=== PATIENT | male | born 1980 | race Caucasian/White ===

== ENCOUNTER 2016-05-28 22:49 | Inpatient (IN) ==
[2016-05-28] MEDS ORDERED: NS 1,000 ML IV ONE (22:59)
[2016-05-28] MEDS ORDERED: ZOFRAN IV ONE (22:59)
--- NOTE | 2016-05-28 23:14 | PROVIDER DOCUMENTATION ---
HPI-General Adult - General Chief Complaint: Near Syncope Stated Complaint: FLANK PAIN,DIZZINESS Time Seen by Provider: 05/28/16 22:58 Source: patient Allergies/Adverse Reactions: Patient Allergies Allergy/AdvReac Type Severity Reaction Status Date / Time mometasone furoate Allergy RUNNY NOSE Verified 05/28/16 22:58 [From Nasonex] Home Medications: Home Medication List Medication Instructions Recorded Confirmed Last Taken Type Amitriptyline [Elavil] 50 mg PO HS 05/28/16 05/28/16 05/28/16 History Baclofen 10 mg PO TID 05/28/16 05/28/16 05/28/16 History Insulin Glargine,Hum.rec.anlog 100 unit SQ 05/28/16 05/28/16 History [Lantus Solostar] LISINOpril [Prinivil] 10 mg PO DAILY 05/28/16 05/28/16 05/28/16 History Metformin [Glucophage] 1,000 mg PO BID CC 05/28/16 05/28/16 05/28/16 History - History of Present Illness -Gen Adult Nature of Presenting Problems: Pt. is 36 yom that presents with c/o N/V and right flank pain. Pt. reports when he bends over he gets dizzy and almost passes out. Pt. reports symptoms for one week. Pt. reports he is a diabetic and that he takes pills and insulin. Pt. denies any other symptoms. Location of Pain/Injury: reports: generalized. denies: head, face, mouth, neck , chest, upper extremity, hand(s), abdomen, back, pelvis, genitalia, lower extremity, feet, upper body, lower body Pain Radiation: reports: no radiation Quality of Pain: reports: aching. denies: burning, cramping, dull, fullness, indigestion, pressure, sharp, stabbing, tearing, throbbing, tightness Severity: reports: mild. denies: moderate, severe Onset/Duration: reports: gradual, 1 week ago Timing: reports: still present. denies: improving, gone now, resolved prior to arrival, intermittent, constant, changing over time, getting worse Context/Activities at Onset: reports: none. denies: recent emotional stress, recent physical stress, recent trauma history, possible bad food, cold exposure , out of country travel Modifying Factors: improves with: nothing Associated Symptoms: reports: fatigue, malaise, nausea, vomiting, weakness. denies: anxiety, arm pain, back/neck pain, chest pain, constipation, cough, diaphoresis, diarrhea, dizziness, EENT symptoms, fever/chills, genitourinary problems, headaches, heartburn, joint pain, loss of appetite, muscle aches, sinus congestion/drainage, rash, seizure, shortness of breath, sensory/motor loss, pain with inspiration, swelling/mass in abdomen, syncope, trouble walking Similar Symptoms Previously?: Yes Recently seen or treated by another doctor?: No Review of Systems - Adult - REVIEW OF SYSTEMS - ADULT Constitutional: reports: see HPIalma. denies: chills, fever Eyes: reports: see HPI. denies: discharge, blurred vision, double vision Ears, Nose, Mouth & Throat: reports: see HPI. denies: ear pain, hearing loss, sinus problem, nose pain, loose teeth, mouth/dental pain, throat pain, throat swelling Cardiovascular: reports: see HPI. denies: chest pain, irregular heart rate, orthopnea, syncope Respiratory: reports: see HPI. denies: chronic cough, cough, dyspnea on exertion, pleurisy, shortness of breath, wheezing Gastrointestinal: reports: see HPI, abdominal pain, nausea, vomiting. denies: hematemesis, diarrhea Genitourinary: reports: see HPI. denies: dysuria, discharge, flank pain, hematuria, hesitency, urgency Musculoskeletal: reports: see HPI, muscle aches. denies: bone pain, joint pain , joint swelling, neck pain Integumentary: reports: see HPI. denies: hives, hair loss, itching, rash, skin thickening Neurological: reports: see HPI. denies: ataxia, headache/migraines, numbness, paresthesia, seizure, tremors Psychiatric: reports: see HPI. denies: anxiety, depression, emotional problems , insomnia, panic attacks, suicidal thoughts Past History - Adult - PAST MEDICAL HISTORY-ADULT Review of Records: reports: Old Records Reviewed, Nursing Assessment Review, Medications Reviewed, Social history reviewed & non-contributory. Major Childhood Illnesses: reports: denies history Cardiovascular: reports: denies history Respiratory: reports: denies history Gastrointestinal: reports: denies history Obstetrical/Gynecological: reports: denies history Genitourinary: reports: denies history Musculoskeletal: reports: denies history Neurological: reports: denies history Psychiatric: reports: depression Endocrine/Immune: reports: Diabetes Other Conditions: reports: denies history - PRIOR SURGERIES/PROCEDURES Surgical/Procedure History: reports: reviewed, not pertinent - IMMUNIZATION STATUS Childhood Immunizations: See Nurse Assessment Flu Vaccine: See Nurse Assessment - FAMILY HISTORY Family History: reviewed, not pertinent - SOCIAL HISTORY Smoking: non-smoker Physical Exam-General - PHYSICAL EXAM-ADULT Initial Vital Signs Reviewed: Yes - CONSTITUTIONAL General Appearance: alert, mild distress, obese. negative: thin, anxious, lethargic, slow to respond, obtunded, combative - EYES Eyes: PERRL/EOMI, pink conjunctivae. negative: conjuctival exudate, scleral icterus, subconjunctival hemorrhage - HEAD, EARS, NOSE, MOUTH & THROAT HENMT: normocephalic/atraumatic, moist mucous membranes. negative: angioedema, frontal tenderness, maxillary tenderness - NECK Neck: non-tender, full range of motion, supple, normal inspection. negative: lymphadenopathy, trachial deviation, thyromegaly - RESPIRATORY Respiratory: lungs clear, normal breath sounds. negative: crackles, rales, rhonchi, stridor, wheezing - CARDIOVASCULAR Cardiovascular: regular rate, rhythm, no edema, no JVD, no murmur, tachycardia. negative: extra beats, friction rub, irregularly irregular - CHEST (BREASTS) Chest/Breast: deferred - GASTROINTESTINAL (ABDOMEN) Abdominal Exam: normal bowel sounds, non tender, soft. negative: distended, guarding, rigid, rebound, tenderness, hernia, mass - GENITOURINARY Male Genitalia: deferred Rectal Exam: deferred Hemoccult Exam: deferred - LYMPHATIC Lymphatic: no adenopathy. negative: axilla node tender, cervical node tenderness - MUSCULOSKELETAL Back Exam: normal inspection, no CVA tenderness, no vertebral tenderness. negative: ecchymosis, swelling, vertebral tenderness Extremity: normal range of motion, non-tender, normal gait, normal inspection. negative: deformity, erythema, inflammation, swelling, tenderness Peripheral Pulses: radial (R): 2+, radial (L): 2+ - SKIN Integumentary: normal color, normal turgor, warm/dry. negative: cyanosis, diaphoresis, ecchymosis, erythema, jaundice, mottled, pallor, petechiae, purpura , rash, swelling, tenderness - NEUROLOGIC Neurologic: grossly normal, no motor/sensory deficits. negative: aphasia, facial droop, focal weakness, motor weakness, sensory deficit - PSYCHIATRIC Psych/Mental Status: normal mood/affect, normal thought content, normal thought process, oriented x 3. negative: anxious, paranoid, tearful Progress - PLAN OF CARE/RESULTS Progress/Plan/Lab Results: Discussed results and plan of care with patient. Patient agrees with plan and verbalizes understanding. Vital Signs Temp Pulse Resp BP Pulse Ox 05/28/16 23:58 113 H 17 118/069 99 05/28/16 22:53 97 F L 125 H 18 111/083 99 mometasone furoate [From Nasonex] Allergy (Verified 05/28/16 22:58) RUNNY NOSE Amitriptyline [Elavil] 50 mg PO HS 05/28/16 Baclofen 10 mg PO TID 05/28/16 Insulin Glargine,Hum.rec.anlog [Lantus Solostar] 100 unit SQ 05/28/16 LISINOpril [Prinivil] 10 mg PO DAILY 05/28/16 Metformin [Glucophage] 1,000 mg PO BID CC 05/28/16 Laboratory 05/29/16 05/28/16 05/28/16 00:15 23:10 23:10 WBC 15.78 H RBC 5.24 Hgb 15.6 Hct 44.8 MCV 85.5 MCH 29.8 MCHC 34.8 RDW Std Deviation 12.9 Plt Count 279 MPV 11.3 H Immature Gran % (Auto) 2.0 H Neut % (Auto) 60.7 Lymph % (Auto) 30.0 Maury % (Auto) 4.8 Eos % (Auto) 1.5 Baso % (Auto) 1.0 H Immature Gran # (Auto) 0.32 H Neut # (Auto) 9.59 H Lymph # (Auto) 4.74 H Maury # (Auto) 0.75 H Eos # (Auto) 0.23 Baso # (Auto) 0.15 Specimen Type ARTERIAL Sample Site R RADIAL pH 7.43 pCO2 30 L pO2 97 HCO3 22.3 Base Excess -3.3 L Oxyhemoglobin 95.5 ABG O2 Sat (Calculated) 18.6 ABG O2 Saturation 98.7 ABG Carboxyhemoglobin 2.00 ABG Methemoglobin 1.3 Efren Test YES A-a O2 Difference 15.0 Total Hemoglobin 13.8 Lactate 3.70 H Blood Gas Modality ROOM AIR FiO2 % 21.0 Sodium Potassium Chloride Carbon Dioxide Anion Gap BUN Creatinine Estimated GFR/1.73 m2 BUN/Creatinine Ratio Glucose POC Glucose Calculated Osmolality Calcium Total Bilirubin AST ALT Alkaline Phosphatase Creatine Kinase Total Protein Albumin Globulin Albumin/Globulin Ratio Amylase 28 Lipase 38 Acetone Level 05/28/16 05/28/16 23:10 22:57 WBC RBC Hgb Hct MCV MCH MCHC RDW Std Deviation Plt Count MPV Immature Gran % (Auto) Neut % (Auto) Lymph % (Auto) Maury % (Auto) Eos % (Auto) Baso % (Auto) Immature Gran # (Auto) Neut # (Auto) Lymph # (Auto) Maury # (Auto) Eos # (Auto) Baso # (Auto) Specimen Type Sample Site pH pCO2 pO2 HCO3 Base Excess Oxyhemoglobin ABG O2 Sat (Calculated) ABG O2 Saturation ABG Carboxyhemoglobin ABG Methemoglobin Efren Test A-a O2 Difference Total Hemoglobin Lactate Blood Gas Modality FiO2 % Sodium 130 L Potassium 4.4 Chloride 91 L Carbon Dioxide 19 L Anion Gap 20 BUN 20 Creatinine 1.9 H Estimated GFR/1.73 m2 41 BUN/Creatinine Ratio 11 Glucose 283 H POC Glucose 295 H Calculated Osmolality 274 Calcium 10.7 H Total Bilirubin 0.50 AST 31 ALT 47 H Alkaline Phosphatase 107 Creatine Kinase 88 Total Protein 8.1 Albumin 4.5 Globulin 4.0 Albumin/Globulin Ratio 1.0 Amylase Lipase Acetone Level NEGATIVE Orders Category Date Time Status Cardiac Monitoring DIRECTED Care 05/28/16 23:37 Active Saline Loc NOW Care 05/28/16 22:59 Active ABG [RESP] Routine Lab 05/29/16 00:15 Completed ACETONE SERUM [CHEM] Stat Lab 05/28/16 23:10 Completed AMYLASE [CHEM] Stat Lab 05/28/16 23:10 Completed BLOOD CULTURE [BLDCUL] Stat Lab 05/29/16 00:34 Ordered CBC WITH ELECTRONIC DIFF [HEME] Stat Lab 05/28/16 23:10 Completed CK PROFILE [SP CHEM] Stat Lab 05/28/16 23:10 Completed COMPREHENSIVE METABOLIC PANEL [CHEM] Stat Lab 05/28/16 23:10 Completed LACTATE, PLASMA [CHEM] Stat Lab 05/29/16 00:50 Received LIPASE [CHEM] Stat Lab 05/28/16 23:[address] W/POSS RFLX CULT [URINALYSIS] Stat Lab 05/29/16 00:34 Uncollected 0.9% Sodium Chloride Inj [Ns] 1,000 ml Med 05/28/16 22:59 Discontinued IV 999 mls/hr 0.9% Sodium Chloride Inj [Ns] 1,000 ml Med 05/29/16 00:34 Active IV 999 mls/hr 0.9% Sodium Chloride Inj [Ns] 1,000 ml Med 05/29/16 00:34 Active IV 999 mls/hr CefTRIAXONE 1 GM/NS [Rocephin 1 gm/Ns] 50 ml Med 05/29/16 01:08 Active IV NOW Morphine Med 05/29/16 00:57 Discontinued 4 mg IV NOW ONE Ondansetron [Zofran] Med 05/28/16 22:59 Discontinued 4 mg IV NOW ONE Laboratory Tests 05/28/16 05/28/16 05/28/16 22:57 23:10 23:10 WBC 15.78 H RBC 5.24 Hgb 15.6 Hct 44.8 MCV 85.5 MCH 29.8 MCHC 34.8 RDW Std Deviation 12.9 Plt Count 279 MPV 11.3 H Immature Gran % (Auto) 2.0 H Neut % (Auto) 60.7 Lymph % (Auto) 30.0 Maury % (Auto) 4.8 Eos % (Auto) 1.5 Baso % (Auto) 1.0 H Immature Gran # (Auto) 0.32 H Neut # (Auto) 9.59 H Lymph # (Auto) 4.74 H Maury # (Auto) 0.75 H Eos # (Auto) 0.23 Baso # (Auto) 0.15 Specimen Type Sample Site pH pCO2 pO2 HCO3 Base Excess Oxyhemoglobin ABG O2 Sat (Calculated) ABG O2 Saturation ABG Carboxyhemoglobin ABG Methemoglobin Efren Test A-a O2 Difference Total Hemoglobin Lactate Blood Gas Modality FiO2 % Sodium 130 L Potassium 4.4 Chloride 91 L Carbon Dioxide 19 L Anion Gap 20 BUN 20 Creatinine 1.9 H Estimated GFR/1.73 m2 41 BUN/Creatinine Ratio 11 Glucose 283 H POC Glucose 295 H Calculated Osmolality 274 Calcium 10.7 H Total Bilirubin 0.50 AST 31 ALT 47 H Alkaline Phosphatase 107 Creatine Kinase 88 Total Protein 8.1 Albumin 4.5 Globulin 4.0 Albumin/Globulin Ratio 1.0 Amylase Lipase Acetone Level NEGATIVE 05/28/16 05/29/16 23:10 00:15 WBC RBC Hgb Hct MCV MCH MCHC RDW Std Deviation Plt Count MPV Immature Gran % (Auto) Neut % (Auto) Lymph % (Auto) Maury % (Auto) Eos % (Auto) Baso % (Auto) Immature Gran # (Auto) Neut # (Auto) Lymph # (Auto) Maury # (Auto) Eos # (Auto) Baso # (Auto) Specimen Type ARTERIAL Sample Site R RADIAL pH 7.43 pCO2 30 L pO2 97 HCO3 22.3 Base Excess -3.3 L Oxyhemoglobin 95.5 ABG O2 Sat (Calculated) 18.6 ABG O2 Saturation 98.7 ABG Carboxyhemoglobin 2.00 ABG Methemoglobin 1.3 Efren Test YES A-a O2 Difference 15.0 Total Hemoglobin 13.8 Lactate 3.70 H Blood Gas Modality ROOM AIR FiO2 % 21.0 Sodium Potassium Chloride Carbon Dioxide Anion Gap BUN Creatinine Estimated GFR/1.73 m2 BUN/Creatinine Ratio Glucose POC Glucose Calculated Osmolality Calcium Total Bilirubin AST ALT Alkaline Phosphatase Creatine Kinase Total Protein Albumin Globulin Albumin/Globulin Ratio Amylase 28 Lipase 38 Acetone Level - XRAY 1 XRAY Study: Chest XRAY Interpretation: Right hilar infiltrate (Cook) - CONSULTS/PCP/HOSPITALIST Notification #1 *Consult/PCP/Hospitalist*: Dr. Bobby Time Discussed: 01:13 Reason/Comments: Admission Consult Disposition: Admit #2 Consult: Dr. Morgan Time Discussed: 01:28 Reason/Comments: Admission Consult Disposition: Admit (Can send to [facility] because there are no beds at [place] ) Departure - Departure Time of Disposition Order: 01:13 DIAGNOSIS: Dehydration, Hyponatremia Leukocytosis Qualifiers: Leukocytosis type: unspecified Qualified Code(s): D72.829 - Elevated white blood cell count, unspecified Disposition: ADMITTED INPATIENT 09 Certified Medical Emergency: Emergent Condition: Stable Referrals: David Rojas [Primary Care Provider] - Attestation - Physician/ TIFFANIE Attestation Patient care was provided by Advanced Practice Provider:: Yes Advanced Practice Provider:: Denae Schwartz Advanced Practice Provider documentation review:: The Mid-level provider documentation, treatment plan and medical decision making was reviewed by the physician who agrees with all treatment and medical decision making by the MLP.
[2016-05-28 23:18] LABS: MANUAL DIFF NEEDED? NO
[2016-05-28 23:50] LABS: EOS# 0.23 X1000 (0.0-0.7); EOS% 1.5 % (0.0-10.0); HEMATOCRIT 44.8 % (42.0-52.0); HEMOGLOBIN 15.6 g/dL (14.0-18.0); IMM GRAN# 0.32 X1000 (0.0-0.04); LYMPH# 4.74 X1000 (1.2-3.4); MCH 29.8 PG (27-31); MCHC 34.8 g/dL (33-37); MCV 85.5 FL (81-99); MONO# 0.75 X1000 (0.11-0.59); MONO% 4.8 % (1.7-9.3); MPV 11.3 FL (7.4-10.4); NEUT% 60.7 % (42.2-75.2); PLT 279 X1000 (130-400); RBC 5.24 XMIL (4.7-6.1)
[2016-05-28 23:57] LABS: ACETONE SERUM NEGATIVE (NEGATIVE)
[2016-05-29 00:02] LABS: AGAP 20; ALBUMIN 4.5 g/dL (3.5-5.0); ALKALINE PHOSPHATASE 107 U/L (32-122); BUN 20 mg/dL (8-22); CALCIUM 10.7 mg/dL (8.8-10.2); CHLORIDE 91 mmol/L (98-107); CK PROFILE 88 U/L (24-204); COSMO 274; GOT 31 U/L (10-34); GPT 47 U/L (10-44); POTASSIUM 4.4 mmol/L (3.5-5.1); SODIUM 130 mmol/L (136-145); TCO2 19 mmol/L (25-35); TOTAL PROTEIN 8.1 g/dL (6.3-8.3)
[2016-05-29 00:04] LABS: AMYLASE 28 U/L (20-200); LIPASE 38 U/L (13-60)
[2016-05-29 00:31] LABS: BE -3.3 mmoll (-3.0-3.0); BLOOD TYPE ARTERIAL; DRAW SITE R RADIAL; METHB 1.3 % (0.0-1.5); O2(CT) 18.6 mL/dL (15.0-23.0); PCO2(98.6) 30 mmHg (35-45); PO2(98.6) 97 mmHg (60-100); SAMPLE BLOOD; SAO2 98.7 % (95.0-100.0); THB 13.8 g/dL (11.5-17.4); pH(98.6) 7.43 (7.35-7.45)
[2016-05-29] MEDS ORDERED: NS 1,000 ML IV ONE ×2 (00:34)
[2016-05-29 00:47] LABS: ALLEN TEST YES; MODALITY ROOM AIR
[2016-05-29] MEDS ORDERED: MORPHINE IV ONE (00:57)
[2016-05-29] MEDS ORDERED: ROCEPHIN 1 GM/NS 50 ML IV ONE (01:08)
[2016-05-29] MEDS ORDERED: ZOFRAN IV PRN (01:14)
[2016-05-29] MEDS ORDERED: TYLENOL PO PRN (01:14)
[2016-05-29 02:02] LABS: URINE SOURCE VOIDED
[2016-05-29] MEDS: NS 1,000 ML IV SCH ×5 (02:24→19:13)
[2016-05-29 02:33] LABS: BILIRUBIN URINE NEGATIVE (NEGATIVE); BLOOD URINE NEGATIVE (NEGATIVE); GLUCOSE URINE NEGATIVE (NEGATIVE); LEUKOCYTES URINE TRACE (NEGATIVE); NITRITE URINE NEGATIVE (NEGATIVE); PROTEIN URINE NEGATIVE (NEGATIVE); UROBILINOGEN URINE NORMAL
[2016-05-29 02:34] LABS: CLARITY CLEAR (CLEAR); COLOR YELLOW; URINE CRYSTAL CA OXALATE PRESENT /HPF; URINE CULTURE PL NEEDED? YES; URINE EPITHELIAL CELLS <10 /HPF (<10); URINE RBC <10 /HPF (<10); URINE WBC <10 /HPF (<10)
[2016-05-29] MEDS ORDERED: MORPHINE IV PRN (04:13)
[2016-05-29 06:18] LABS: MANUAL DIFF NEEDED? NO
[2016-05-29 06:40] LABS: BASO% 0.8 % (0.0-0.8); EOS# 0.46 X1000 (0.0-0.7); EOS% 3.8 % (0.0-10.0); HEMATOCRIT 35.7 % (42.0-52.0); HEMOGLOBIN 12.3 g/dL (14.0-18.0); IMM GRAN# 0.17 X1000 (0.0-0.04); IMM GRAN% 1.4 % (0.0-0.5); LYMPH# 5.03 X1000 (1.2-3.4); LYMPH% 41.1 % (20.5-51.1); MCHC 34.5 g/dL (33-37); MCV 87.1 FL (81-99); MONO# 0.69 X1000 (0.11-0.59); MONO% 5.6 % (1.7-9.3); MPV 10.6 FL (7.4-10.4); NEUT% 47.3 % (42.2-75.2); PLT 206 X1000 (130-400)
[2016-05-29] MEDS ORDERED: FLUZONE QUAD 2016-2017 SYRINGE IM ONE (06:40)
[2016-05-29] MEDS ORDERED: PNEUMOVAX 23 IM ONE (06:40)
[2016-05-29] MEDS: HUMALOG SUBQ SCH ×4 (06:51→20:20)
[2016-05-29 06:54] LABS: AGAP 13; BUN 16 mg/dL (8-22); CALCIUM 8.3 mg/dL (8.8-10.2); CHLORIDE 102 mmol/L (98-107); COSMO 272; POTASSIUM 4.1 mmol/L (3.5-5.1); SODIUM 135 mmol/L (136-145); TCO2 20 mmol/L (25-35)
[2016-05-29] MEDS ORDERED: DILAUDID IV PRN (07:06)
[2016-05-29] MEDS ORDERED: GLUCOPHAGE PO SCH (08:00)
[2016-05-29] MEDS: PRINIVIL PO SCH (08:11)
[2016-05-29] MEDS: PROTONIX IV SCH (08:29)
[2016-05-29] MEDS: SODIUM CHLORIDE 0.9% INJ SCH (08:29)
[2016-05-29] MEDS ORDERED: LANTUS SUBQ SCH (09:00)
--- NOTE | 2016-05-29 09:43 | Diag Imaging Result Document ---
PROCEDURE NAME: CHEST-2 VIEWS - 05/29/2016 TWO VIEWS OF THE CHEST: Normal chest.
--- NOTE | 2016-05-29 09:45 | Diag Imaging Result Document ---
PROCEDURE NAME: RENAL STONE SEARCH - 05/29/2016 CT UROGRAM WITHOUT CONTRAST: FINDINGS: There are a number of small granulomata in the lung bases. No evidence of pulmonary consolidation is present. There are no demonstrable gallstones. There is no evidence of nephrolithiasis or hydronephrosis. The small bowel and colon are not distended. The appendix is normal in caliber. There are no abnormal fluid collections. No evidence of ureterolithiasis is present. IMPRESSION: No evidence of stones or obstruction. The single punctate calcification in the pancreas is of doubtful significance.
--- NOTE | 2016-05-29 09:56 | HISTORY AND PHYSICAL ---
PRIMARY CARE PROVIDER: Dr. Tesfaye Rojas in [place]. CHIEF COMPLAINT: Near-syncopal episode. HISTORY OF PRESENT ILLNESS: Mr. Mijares is a 36-year-old male who presented to the ER at [place] last night at approximately 2300 with complaints of dizziness and a near-syncopal episode after bending over and leaning back up. The patient reports that he has a history of vertigo though has had some dizziness with this, as well, which is not normal for him. The patient reports that last Tuesday or Tuesday approximately 1 week ago that he became dizzy, fell out of bed, and got back up, and while attempting to walk down the stairs fell again, landing on his right side of his back. The patient reports that since this time has had constant right lower back pain that is sharp in nature that radiates down his right buttock into his right leg. The patient states, also, for the past week that he has had nausea and vomiting. He denies any hematemesis. He also reports that he has had some diarrhea for the past 3-4 days though denies any melena. The patient denies dysuria, urinary frequency, body aches or chills. He does report that due to his nausea and vomiting he has not eaten or drunk much in the past few days. The patient does complain of some generalized abdominal pain, as well. He describes this as sore in nature. The patient is alert and oriented to person, place, time, and situation. He denies any headache, chest pain, shortness of breath, or new or worsening numbness or tingling in his extremities. The patient does report that he has some decreased sensation in his bilateral feet secondary to diabetic neuropathy. Upon evaluation in the ER, the patient was found to have an elevated white blood cell count of 15 with an elevated lactate of 3.4. Chest x-ray was negative for any acute abnormality. The patient also did appear to be volume depleted with an acute kidney injury, as well. A urinalysis was obtained which did show trace white blood cells and 2+ bacteria though was otherwise normal. CT of the abdomen and pelvis without contrast showed the liver and spleen were both enlarged, though there are no other acute abnormalities noted at this time. At this time, we will admit the patient for further treatment and evaluation of his leukocytosis, UTI, acute kidney injury, and volume depletion. Due to not having any inpatient medical or surgical beds at [facility], we will transfer the patient to [facility] to be admitted. REVIEW OF SYSTEMS: A 14-point review of systems was conducted with the patient and all were negative except for pertinent positives mentioned in the above HPI. PAST MEDICAL HISTORY: 1. Vertigo. 2. Diabetes mellitus type 2. 3. Restless legs syndrome. 4. Diabetic neuropathy. 5. Depression. 6. Hypertension. PAST SURGICAL HISTORY: 1. Sinus surgery. 2. 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 SOCIAL HISTORY: The patient reports that he smokes 1/4-pack of cigarettes per day and has so for the past 15 years. He denies any alcohol or illicit drug use. The patient reports that he just recently started a job at [employer] 3 days ago. FAMILY HISTORY: Positive for diabetes mellitus, hypertension, and heart disease in his father. He reports that his grandmother had a history of breast cancer. He also reports that an aunt of his also has a history of breast cancer and that his grandfather from lung cancer. ALLERGIES: The patient reports allergies to Nasonex. HOME MEDICATIONS: 1. Lantus 65 units subcutaneous at bedtime. 2. Lantus 85 units subcutaneous daily. 3. Metformin 1000 mg p.o. b.i.d. 4. Baclofen 10 mg p.o. t.i.d. 5. Lisinopril 10 mg p.o. daily. 6. Elavil 50 mg p.o. at bedtime. DIAGNOSTIC DATA/LABORATORY RESULTS: White blood cell count 15.7, hemoglobin 15.6, hematocrit 44.8, platelet count is 279. Sodium 130, potassium 4.4, chloride 91, bicarb 19, BUN 20, creatinine 1.9, GFR is 41, glucose 283. Calcium 10.7. Liver function tests were within normal limits except for his AST is slightly elevated at 47. CK is 88. Amylase 28, lipase 38, plasma lactate 3.4. Serum acetone level was negative. Arterial blood gases are obtained on room air. pH was 7.43, pCO2 of 30, pO2 of 97, HCO3 22.3, base excess was negative 3.3, O2 saturation was 98.7. Urinalysis obtained via clean catch was positive for trace white blood cells and 2+ bacteria though was otherwise normal. These labs were collected at 2310 on 05/28/2016. Chest x-ray showed no acute abnormalities. CT renal stone search showed that the liver was enlarged, the gallbladder was unremarkable. There were no renal stones or ureteral stones noted, no hydronephrosis noted. The spleen is enlarged. There was punctate pancreatic calcification though no peripancreatic inflammatory changes noted. No diverticulitis identified or bowel obstruction. There were calcified granulomas in the lower lungs with small subpleural densities on the left. PENDING DIAGNOSTIC STUDIES AT THIS TIME: An EKG, urine culture, blood cultures, hepatic function tests, stool studies as well as a ultrasound gallbladder and a lumbar spine 2 view. PHYSICAL EXAMINATION: VITAL SIGNS: Temperature 97.9, heart rate 89, respirations 20, blood pressure 146/86, oxygen saturation is 100% on room air. GENERAL: Mr. Mijares is an obese 36-year-old male who is resting comfortably in the inpatient bed. He was awake, alert , and able to answer all questions appropriately. HEENT: Head is atraumatic, normocephalic. Pupils are equal, round, reactive to light, were 3 mm bilaterally and brisk. Subconjunctivae are pink. Oral mucosa is moist. Oropharynx is clear. NECK: Supple, trachea midline. CARDIOVASCULAR: The patient had a normal S1, S2, no murmurs, gallops or rubs appreciated with a regular rate and rhythm. PULMONARY: The patient has symmetrical chest expansion bilaterally. Lung sounds are clear to auscultation in bilateral full alvarez. ABDOMEN: Soft, does not appear to be distended, though the patient does have a protuberant abdomen noted. He did have generalized tenderness noted upon palpation. Bowel sounds were present in all 4 quadrants, were normoactive. EXTREMITIES: No cyanosis, clubbing, or edema noted. Pulse, motor, and sensory were intact in all extremities as well. Pedal pulses were 3+ bilaterally. The patient did note some soreness upon palpation of his right lower extremity. MUSCULOSKELETAL: The patient reports sharp right lower back pain that radiates down his right buttock to is right leg. This area from right CVA area to the right buttock and into his right leg was tender upon palpation. No discoloration noted to this area. INTEGUMENTARY: The patient's skin is pink, warm, dry, and intact. No lesions or sores noted. NEUROLOGICAL: The patient is alert and oriented to person, place, time, and situation. Cranial nerves 2-12 are grossly intact, though the patient does have some decreased sensation in his bilateral feet. This is not of new onset. He reports no new onset of numbness, tingling in extremities. ASSESSMENT AND PLAN: 1. Leukocytosis. This could be a combination of possibly related to a urinary tract infection and reactive. We will place the patient on Rocephin 1 g IV q.24 h. for his urinary tract infection. Urine culture as well as blood cultures have been placed and we will await those results. At this time, we have ordered a gallbladder ultrasound to rule out any other etiology for his leukocytosis as well as abdominal pain. 2. Urinary tract infection. Will continue with treatment as mentioned for #1 and continue to follow. 3. Acute kidney injury. This is likely secondary to nausea, vomiting, and volume depletion. Will continue with fluid restriction, normal saline at 100 mL/h., and will avoid nephrotoxic medications and renally dose all other medicines as needed. 4. Volume depletion. This is likely secondary to his nausea and vomiting. Will continue with treatment as mentioned above and continue to follow. 5. Nausea and vomiting. Will continue with Zofran 4 mg IV q. 4-6 h. as needed. 6. Diarrhea. We have placed orders for stool studies and are awaiting those results and will continue to follow. 7. Diabetes mellitus type 2. We will place the patient on a lispro low-dose sliding scale. Will do patterned fingerstick blood sugars. We have held the patient's metformin secondary to his acute kidney injury. 8. Hypertension. Will continue the patient's lisinopril 10 mg p.o. daily and continue to follow. 9. Low back pain. At this time, for further evaluation of this, we have ordered a lumbar spine to be performed to rule out any other injury. We have placed the patient on pain medicine, Dilaudid 1 mg IV q.3 h. p.r.n. as well as a muscle relaxer, Flexeril 5 mg p.o. q.8 h. and will continue to follow. The patient will be placed on a medical floor with telemetry. He will have vital signs q.6 h. DVT prophylaxis will be provided with SCDs, GI prophylaxis will be provided with Protonix 40 mg IV q.24 h. Further orders and recommendations pending hospital course, diagnostic studies, and physician evaluation. Dictated by KETURAH Guerra for Carson Morgan MD
[2016-05-29] MEDS: NORCO-10 PO PRN ×3 (10:09→19:12)
--- NOTE | 2016-05-29 10:15 | Diag Imaging Result Document ---
PROCEDURE NAME: US GB < RUQ (LIMITED) - 05/29/2016 RIGHT UPPER QUADRANT ULTRASOUND: FINDINGS: The liver is hyperechoic. The visualized portions of the aorta and inferior vena cava are normal in caliber, but mostly it is obscured, as is the pancreas. There is antegrade flow in the portal vein, and the common bile duct measures 4 mm. The right kidney is without evidence of hydronephrosis or mass. The gallbladder is apparently clear, and there is no definite sonographic Perdue sign. The patient is tender everywhere. No free fluid is demonstrated. IMPRESSION: Hepatic steatosis. No definite evidence of acute disease.
--- NOTE | 2016-05-29 10:29 | Diag Imaging Result Document ---
PROCEDURE NAME: LUMBAR SPINE 2-VIEWS - 05/29/2016 LUMBAR SPINE, AP AND LATERAL: FINDINGS: There is no evidence of acute fracture or subluxation. There is a transitional vertebra which is partially sacralized on the left at L5. There are some anterior osteophytes present at the T12-L1 and L1-2 levels. IMPRESSION: No evidence of acute bony disease.
[2016-05-29] MEDS: FLEXERIL PO SCH ×2 (12:52→20:20)
[2016-05-29] MEDS: ELAVIL PO SCH (20:20)
[2016-05-30] MEDS: NORCO-10 PO PRN ×5 (01:01→21:36)
[2016-05-30] MEDS: ROCEPHIN 1 GM/NS 50 ML IV SCH (01:03)
[2016-05-30] MEDS ORDERED: VANCOMYCIN IV PER PHARMACY MISC SCH (01:30)
[2016-05-30] MEDS: VANCOMYCIN 2,000 MG in NS 500 ML IV SCH ×2 (03:42→15:20)
[2016-05-30] MEDS: FLEXERIL PO SCH ×3 (04:58→21:37)
[2016-05-30 06:19] LABS: MANUAL DIFF NEEDED? NO
[2016-05-30 06:24] LABS: BASO% 1.2 % (0.0-0.8); EOS# 0.41 X1000 (0.0-0.7); EOS% 5.3 % (0.0-10.0); HEMATOCRIT 37.1 % (42.0-52.0); HEMOGLOBIN 12.6 g/dL (14.0-18.0); IMM GRAN# 0.12 X1000 (0.0-0.04); IMM GRAN% 1.5 % (0.0-0.5); LYMPH# 3.59 X1000 (1.2-3.4); MCH 30.1 PG (27-31); MCV 88.5 FL (81-99); MONO# 0.41 X1000 (0.11-0.59); MONO% 5.3 % (1.7-9.3); MPV 10.8 FL (7.4-10.4); NEUT% 40.7 % (42.2-75.2); PLT 170 X1000 (130-400); RBC 4.19 XMIL (4.7-6.1)
[2016-05-30 06:53] LABS: AGAP 12; BUN 9 mg/dL (8-22); CALCIUM 8.3 mg/dL (8.8-10.2); CHLORIDE 103 mmol/L (98-107); COSMO 277; POTASSIUM 4.3 mmol/L (3.5-5.1); SODIUM 138 mmol/L (136-145); TCO2 23 mmol/L (25-35)
[2016-05-30] MEDS: HUMALOG SUBQ SCH ×4 (06:55→22:14)
[2016-05-30 07:03] LABS: ALBUMIN 3.3 g/dL (3.5-5.0); ALKALINE PHOSPHATASE 86 U/L (32-122); DIRECT BILIRUBIN < 0.20 mg/dL (0.00-0.20); GOT 21 U/L (10-34); GPT 31 U/L (10-44); HEMOGLOBIN A1C 8.8 % (4.8-6.0); TOTAL BILIRUBIN 0.21 mg/dL (0.20-1.00); TOTAL PROTEIN 5.6 g/dL (6.3-8.3)
[2016-05-30] MEDS: PRINIVIL PO SCH (09:53)
[2016-05-30] MEDS: SODIUM CHLORIDE 0.9% INJ SCH (09:53)
[2016-05-30] MEDS: PROTONIX IV SCH (09:53)
[2016-05-30] MEDS ORDERED: ULTRAM PO PRN (12:05)
--- NOTE | 2016-05-30 15:21 | PROGRESS NOTE ---
DATE: 05/30/2016 SUBJECTIVE: Today Ms. Mijares refers to be doing a whole lot better. Does not have any more dizziness. Does complain of some lower back pain after he fell. OBJECTIVE: Vital signs: Blood pressure is 126/76, pulse of 70, respirations 20 , temperature is 97.8 degrees. General: Mr. Mijares is a 36-year-old morbidly obese, male. He is in bed, no distress. HEENT: Mucosa is pink and moist. Anicteric. Acyanotic. Neck: Supple. Chest: Clear. Cardiovascular: Regular rate and rhythm. No murmurs. No rubs. No gallops. Abdomen: Soft, nontender. Bowel sounds are present. Extremities: Pedal edema. 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 There is no focal neurological deficit. Back: There is mild tenderness to the lower spine from the fall. LABORATORY DATA: WBC is down to 7.80, hemoglobin is 12.6, platelet count of 170 ,000. Chemistry: Sodium is 138, potassium 4.3, chloride is 103, bicarb is 23, A1c is 8.8, creatinine is down to 0.6 from 1.9. ASSESSMENT: 1. Dizziness, likely due to volume depletion (orthostatic hypotension). This seems to be improved after adequate hydration. 2. Acute kidney injury due to volume depletion. This has improved. 3. Nausea and vomiting, improved. 4. Diabetes mellitus, on high doses of insulin. A1c is 8.8. According to the patient this is actually the best he has had for a very long time. 5. Lower back pain with unremarkable x-rays. Patient does not have any neurological deficits. We will continue just pain management. 6. Morbid obesity. 7. Gram-positive cocci. Blood culture positive 1 out of 2. I think this is probably contamination. However, patient has been given vancomycin. We plan to continue this until we have the ID and sensitivity. PLAN: I think the patient is doing a whole lot better. Once we have the ID and sensitivity we might be able to discharge the patient home tomorrow. [facility]
[2016-05-30] MEDS: ELAVIL PO SCH (21:37)
[2016-05-31] MEDS: ROCEPHIN 1 GM/NS 50 ML IV SCH (00:18)
[2016-05-31] MEDS: VANCOMYCIN 2,000 MG in NS 500 ML IV SCH (01:40)
[2016-05-31] MEDS: NORCO-10 PO PRN ×3 (01:40→10:43)
[2016-05-31] MEDS: FLEXERIL PO SCH (05:14)
--- NOTE | 2016-05-31 06:03 | EKG Report ---
Test Performed on : 05/29/2016 08:17:49 AM Test Reason : Near-Syncopal Episode, Dizziness Blood Pressure : / mmHG Vent. Rate : 084 BPM Atrial Rate : 084 BPM P-R Int : 162 ms QRS Dur : 086 ms QT Int : 398 ms P-R-T Axes : 037 -13 002 degrees QTc Int : 470 ms Normal sinus rhythm. Inferior infarct (cited on or before 17-FEB-2016) Abnormal ECG When compared with ECG of 17-FEB-2016 13:36, No significant change was found Confirmed by Carlos Huang MD ([id number]) on 06/01/2016 9:17:00 PM
[2016-05-31] MEDS: HUMALOG SUBQ SCH ×2 (06:52→10:43)
[2016-05-31 07:36] VITALS: BP 136/88
[2016-05-31] MEDS: PRINIVIL PO SCH (08:46)
[2016-05-31] MEDS: PROTONIX IV SCH (08:47)
[2016-05-31] MEDS: SODIUM CHLORIDE 0.9% INJ SCH (08:47)
[2016-05-31] MEDS ORDERED: FLEXERIL PO SCH (13:00)
--- NOTE | 2016-06-01 11:44 | DISCHARGE SUMMARY ---
ADMISSION DATE: 05/29/2016 DISCHARGE DATE: 05/31/2016 PERTINENT PROCEDURES: Renal CT showed no evidence of stone or obstruction. There is a single punctate calcification in the pancreas of doubtful significance. Abdominal ultrasound showed hepatic steatosis and no evidence of acute disease. Lumbar spine x-ray showed no evidence of acute bony disease. CONSULTATIONS: None. DISCHARGE DIAGNOSES: 1. Dizziness secondary to fluid volume depletion. 2. Orthostatic hypertension, improved after adequate hydration. 3. Acute kidney injury secondary to volume depletion, improved. 4. Nausea and vomiting, improved. 5. Diabetes mellitus with an A1c of 8.8. 6. Lower back pain with unremarkable x-rays with no neurological deficits. 7. Morbid obesity. Patient educated on diet and exercise. 8. GPC + blood culture 1/2 secondary to contamination. It did grow out a Coag negative Staphylococcus. HOSPITAL COURSE: Briefly, Mr. Mijares is 36-year-old male who presented to the ED at [facility] with complaints of dizziness, near-syncopal episode after bending over and leaning back up. The patient reported that he has a history of vertigo so he has had some dizziness with this as well which was not normal for him. The patient reported that last Tuesday or Tuesday, approximately 1 week ago, he became dizzy, fell out of bed and got back up. While attempting to walk down the stairs, he fell again landing on the right side of his back. The patient reported, since that time, he has had constant lower back pain that was sharp in nature that radiated down his right buttock into his right leg. The patient stated for the last week he had nausea and vomiting. He denied any hematemesis. He reported diarrhea for the past 3-4 days. He denied any melena. He also reported not eating or drinking as much due to his nausea and vomiting and complained of generalized abdominal pain. He describes it as sore in nature. In the ED, the patient was found have an elevated white count of 15 with a lactate of 3.4. Chest x-ray was negative for any acute abnormality. The patient did appear to be volume depleted with an acute kidney injury. Urinalysis that was obtained did show trace white blood cells, 2 + bacterial; otherwise, normal. CT of the abdomen and pelvis showed that the liver and spleen were both enlarged. There were no other acute abnormalities. He also underwent a normal spine CT. Due to not having any in-patient medical or surgical beds at [facility], the patient was transferred to [facility] to be admitted. He was started on aggressive IV fluid rehydration. He was also started on IV antibiotics for a possible UTI. The patient did have 1 blood culture grow back gram- positive cocci. It was felt that this was a contamination. The patient, after getting IV fluids, had not had anymore dizziness. He just still complained of lower back pain. Again, a lumbar spine x-ray did not show any evidence of any acute bony disease. The patient was kept until the culture came back. It was a Coag-negative Staphylococcus, still felt to be a contaminant. His urine culture had no growth. There was no enteric pathogen in the stool culture. No WBCs as well as Clostridium difficile negative. The patient, again, reported to doing better after IV fluids. His acute kidney injury resolved. His white count went back to normal. The patient is appropriate for discharge home today. VITAL SIGNS AT TIME OF DISCHARGE: Temperature is 98 degrees, heart rate 89, respirations 16, blood pressure 136/88, O2 is 97% on room air. DISCHARGE DIET: Healthy heart diet. DISCHARGE MEDICINES: 1. Baclofen 10 mg p.o. t.i.d. 2. Elavil 50 mg p.o. at bedtime. 3. Glucophage 1000 mg p.o. b.i.d. 4. Lantus 85 units subcutaneously daily. 5. Lantus 65 units subcutaneously at bedtime. 6. Prinivil 10 mg p.o. daily. 7. Evergreen 10 one each p.o. q.4 hours p.r.n. 8. Flexeril 5 mg p.o. q 8 hours. FOLLOWUP: The patient is being discharged home. He will need to follow up with his primary care physician, Tesfaye Rojas in 7-10 days. The patient can return to the ED for any worsening symptoms. DISCHARGE TIME: 30 minutes. Dictated by KETURAH Nunez for Ollie Vu MD MTDD
== END 2016-05-31 13:59 | disposition home or self-care (01) | DRG 683 ==
LOC: P.ED 22:49 → 4N 05-29 01:19
PROVIDERS: ATTEND Internal Medicine
DX: N17.9 Acute kidney failure, unspecified (principal); N39.0 Urinary tract infection, site not specified; E11.42 Type 2 diabetes mellitus with diabetic polyneuropathy; Z68.43 Body mass index [BMI] 50.0-59.9, adult; E86.9 Volume depletion, unspecified; G25.81 Restless legs syndrome; F32.9 Major depressive disorder, single episode, unspecified; I10 Essential (primary) hypertension; F17.210 Nicotine dependence, cigarettes, uncomplicated; M54.5 Low back pain; E66.01 Morbid (severe) obesity due to excess calories; I95.1 Orthostatic hypotension; Z83.3 Family history of diabetes mellitus; Z82.49 Family history of ischemic heart disease and other diseases of the circulatory system; Z80.3 Family history of malignant neoplasm of breast; Z80.1 Family history of malignant neoplasm of trachea, bronchus and lung; Z79.4 Long term (current) use of insulin; Z79.84 Long term (current) use of oral hypoglycemic drugs; Z79.899 Other long term (current) drug therapy
CPT/HCPCS: 71020; 72100; 74176; 76705; 80048; 80053; 80076; 81001; 82009; 82150; 82550; 82805; 82948; 83036; 83605; 83690; 85025; 87040; 87045; 87046; 87077; 87088; 87324; 89055; 93005; 93010; 96361; 96365; 96375; C9113; J0696; J1170; J1815; J2270; J2405; J3370; J7030; J7040; S0164

== ENCOUNTER 2016-06-01 17:25 | Emergency (ER) ==
--- NOTE | 2016-06-01 17:41 | PROVIDER DOCUMENTATION ---
HPI-General Adult - General Source: patient - History of Present Illness -Gen Adult Nature of Presenting Problems: Reports to er for recheck. Pt reports he was admitted on Tuesday discharged Yesterday from [facility] with diagnosis of Pneumonia,renal insufficiency,uti gave rocephin,did imaging and was given fluids. Reports imaging was negative. Pt reports he fell last week so they did imaging for him. Reports however his right side still hurts and now he is having back pain,abd pain and right leg numbness and pain. Location of Pain/Injury: reports: generalized Quality of Pain: reports: aching Severity: reports: moderate Onset/Duration: reports: 24 hours ago Timing: reports: still present Similar Symptoms Previously?: Yes Recently seen or treated by another doctor?: Yes <Allie Case - Last Filed: 06/01/16 17:44> <Breanna Garcia - Last Filed: 06/01/16 19:42> - General Chief Complaint: Return/Recheck Stated Complaint: NUMBESS,ABD PAIN,BODY PAINS Time Seen by Provider: 06/01/16 17:41 Allergies/Adverse Reactions: Patient Allergies Allergy/AdvReac Type Severity Reaction Status Date / Time mometasone furoate Allergy RUNNY NOSE Verified 06/01/16 17:33 [From Nasonex] Home Medications: Home Medication List Medication Instructions Recorded Confirmed Last Taken Type Amitriptyline [Elavil] 50 mg PO HS 05/28/16 06/01/16 06/01/16 History Baclofen 10 mg PO TID 05/28/16 06/01/16 06/01/16 History Insulin Glargine,Hum.rec.anlog 85 unit SQ DAILY 05/28/16 06/01/16 06/01/16 History [Lantus Solostar] LISINOpril [Prinivil] 10 mg PO DAILY 05/28/16 06/01/16 06/01/16 History Metformin [Glucophage] 1,000 mg PO BID CC 05/28/16 06/01/16 06/01/16 History Insulin Glargine,Hum.rec.anlog 65 unit SQ QHS 05/29/16 06/01/16 06/01/16 History [Lantus Solostar] Cyclobenzaprine [Flexeril] 5 mg PO Q8HR #12 tablet 05/31/16 06/01/16 06/01/16 Rx Hydrocodone/APAP 10 mg/325 mg 1 each PO Q4H PRN PRN #10 tablet 05/31/1606/01/16 Rx [[place]-10] Hydrocodone/APAP 7.5 mg/325 mg 1 each PO Q6H PRN PRN #7 tablet 06/01/16 Unknown Rx [[place]-7.5] Promethazine [Phenergan] 25 mg PO Q6H PRN PRN #20 tablet 06/01/16 Unknown Rx Review of Systems - Adult - REVIEW OF SYSTEMS - ADULT Constitutional: reports: chills. denies: fever, fatique, weight gain, weight loss Eyes: reports: no symptoms reported Ears, Nose, Mouth & Throat: denies: ear pain, sinus problem, throat pain Cardiovascular: reports: no symptoms reported Respiratory: denies: cough, shortness of breath, wheezing Gastrointestinal: reports: see HPI, abdominal pain. denies: diarrhea, nausea, vomiting Genitourinary: reports: no symptoms reported Musculoskeletal: reports: see HPI, back pain, muscle aches. denies: frequent leg cramps, muscle weakness, neck pain Integumentary: reports: no symptoms reported Neurological: reports: numbness. denies: loss of balance, seizure, slurred speech Psychiatric: reports: no symptoms reported Endocrine: reports: no symptoms reported Hematologic/Lymphatic: reports: no symptoms reported Allergic/Immunologic: reports: no symptoms reported All Other Systems: Reviewed and Negative <Allie Case - Last Filed: 06/01/16 17:44> Past History - Adult - PAST MEDICAL HISTORY-ADULT Review of Records: reports: Nursing Assessment Review Major Childhood Illnesses: reports: denies history Cardiovascular: reports: HTN Respiratory: reports: asthma, COPD Endocrine/Immune: reports: Diabetes - IMMUNIZATION STATUS Childhood Immunizations: See Nurse Assessment Flu Vaccine: See Nurse Assessment - SOCIAL HISTORY Smoking: cigarettes, less than 1 pack/day Provider spent 3-5 mins advising pt. on dangers of tobacco.: Discussed manners to quit use, and f/u contacts for add'l counseling. Substance Use: alcohol <Allie Case - Last Filed: 06/01/16 17:44> - PAST MEDICAL HISTORY-ADULT Major Childhood Illnesses: reports: denies history Cardiovascular: reports: denies history Respiratory: reports: denies history Gastrointestinal: reports: denies history Obstetrical/Gynecological: reports: denies history Genitourinary: reports: denies history Musculoskeletal: reports: denies history Neurological: reports: denies history Psychiatric: reports: depression Endocrine/Immune: reports: Diabetes Other Conditions: reports: denies history - PRIOR SURGERIES/PROCEDURES Surgical/Procedure History: reports: reviewed, not pertinent - IMMUNIZATION STATUS Childhood Immunizations: See Nurse Assessment Flu Vaccine: See Nurse Assessment - FAMILY HISTORY Family History: reviewed, not pertinent <Breanna Garcia - Last Filed: 06/01/16 19:42> Physical Exam-General - PHYSICAL EXAM-ADULT Initial Vital Signs Reviewed: Yes - CONSTITUTIONAL General Appearance: appears well, alert, mild distress, obese - EYES Eyes: PERRL/EOMI, pink conjunctivae - HEAD, EARS, NOSE, MOUTH & THROAT HENMT: normocephalic/atraumatic, moist mucous membranes - NECK Neck: non-tender, full range of motion, supple - RESPIRATORY Respiratory: chest non-tender, lungs clear, normal breath sounds, increased rate - CARDIOVASCULAR Cardiovascular: regular rate, rhythm - GASTROINTESTINAL (ABDOMEN) Abdominal Exam: normal bowel sounds, soft, tenderness (generalized without localization), other (protuberant abdomen, unable to palpate liver or spleen) - MUSCULOSKELETAL Back Exam: normal inspection, muscle spasm (left lumbar PSM) Extremity: no calf tenderness, normal capillary refill Peripheral Pulses: dorsalis-pedis (R): 2+, dorsalis-pedis (L): 2+ - SKIN Integumentary: normal color, normal turgor, warm/dry - NEUROLOGIC Neurologic: grossly normal, no motor/sensory deficits - PSYCHIATRIC Psych/Mental Status: normal thought content, normal thought process <Breanna Garcia - Last Filed: 06/01/16 19:42> Progress - PLAN OF CARE/RESULTS Progress/Plan/Lab Results: Vital Signs - 24 hr 06/01/16 17:29 Temperature 98.3 F Pulse Rate 123 H Respiratory 24 Rate Blood Pressure 143/95 O2 Sat by Pulse 100 Oximetry <Allie Case - Last Filed: 06/01/16 17:44> - PLAN OF CARE/RESULTS Progress/Plan/Lab Results: pt is insistent that he needs admission to run further testing to find cause of his multiple vague c/o pain in his back, abdomen, right flank, generalized numbness and fatigue. Explained to pt that he was just admitted, had extensive testing, and next course of action was to be evaluated by PCP for further management. Pt did not voice understanding. Record from last ER visit and admission reviewed. Vital Signs Temp Pulse Resp BP Pulse Ox 06/01/16 17:29 98.3 F 123 H 24 143/95 100 mometasone furoate [From Nasonex] Allergy (Verified 06/01/16 17:33) RUNNY NOSE Amitriptyline [Elavil] 50 mg PO HS 05/28/16 Baclofen 10 mg PO TID 05/28/16 Insulin Glargine,Hum.rec.anlog [Lantus Solostar] 85 unit SQ DAILY 05/28/16 LISINOpril [Prinivil] 10 mg PO DAILY 05/28/16 Metformin [Glucophage] 1,000 mg PO BID CC 05/28/16 Insulin Glargine,Hum.rec.anlog [Lantus Solostar] 65 unit SQ QHS 05/29/16 Cyclobenzaprine [Flexeril] 5 mg PO Q8HR #12 tablet 05/31/16 Hydrocodone/APAP 10 mg/325 mg [[place]-10] 1 each PO Q4H PRN PRN #10 tablet Laboratory 06/01/16 06/01/16 18:55 18:55 WBC 11.40 H RBC 4.66 L Hgb 13.8 L Hct 40.1 L MCV 86.1 MCH 29.6 MCHC 34.4 RDW Std Deviation 12.6 Plt Count 241 MPV 11.1 H Immature Gran % (Auto) 1.0 H Neut % (Auto) 67.0 Lymph % (Auto) 24.0 [place] % (Auto) 5.4 Eos % (Auto) 2.1 Baso % (Auto) 0.5 Immature Gran # (Auto) 0.11 H Neut # (Auto) 7.64 H Lymph # (Auto) 2.74 [place] # (Auto) 0.61 H Eos # (Auto) 0.24 Baso # (Auto) 0.06 Sodium 137 Potassium 3.8 Chloride 98 Carbon Dioxide 26 Anion Gap 14 BUN 9 Creatinine 0.8 Estimated GFR/1.73 m2 > 60 BUN/Creatinine Ratio 11 Glucose 194 H Calculated Osmolality 278 Calcium 9.7 Total Bilirubin 0.50 AST 20 ALT 26 Alkaline Phosphatase 93 Total Protein 7.3 Albumin 3.9 Globulin 3.0 Albumin/Globulin Ratio 1.0 Orders Category Date Time Status CHEST-2 VIEWS [RAD] Stat Exams 06/01/16 18:31 Taken CBC WITH ELECTRONIC DIFF [HEME] Stat Lab 06/01/16 18:55 Completed COMPREHENSIVE METABOLIC PANEL [CHEM] Stat Lab 06/01/16 18:55 Completed Hydromorphone [Dilaudid] Med 06/01/16 18:18 Discontinued 2 mg IM NOW ONE Promethazine [Phenergan] Med 06/01/16 18:18 Discontinued 25 mg IM NOW ONE Laboratory Tests 06/01/16 06/01/16 18:55 18:55 WBC 11.40 H RBC 4.66 L Hgb 13.8 L Hct 40.1 L MCV 86.1 MCH 29.6 MCHC 34.4 RDW Std Deviation 12.6 Plt Count 241 MPV 11.1 H Immature Gran % (Auto) 1.0 H Neut % (Auto) 67.0 Lymph % (Auto) 24.0 [place] % (Auto) 5.4 Eos % (Auto) 2.1 Baso % (Auto) 0.5 Immature Gran # (Auto) 0.11 H Neut # (Auto) 7.64 H Lymph # (Auto) 2.74 [place] # (Auto) 0.61 H Eos # (Auto) 0.24 Baso # (Auto) 0.06 Sodium 137 Potassium 3.8 Chloride 98 Carbon Dioxide 26 Anion Gap 14 BUN 9 Creatinine 0.8 Estimated GFR/1.73 m2 > 60 BUN/Creatinine Ratio 11 Glucose 194 H Calculated Osmolality 278 Calcium 9.7 Total Bilirubin 0.50 AST 20 ALT 26 Alkaline Phosphatase 93 Total Protein 7.3 Albumin 3.9 Globulin 3.0 Albumin/Globulin Ratio 1.0 <Breanna Garcia - Last Filed: 06/01/16 19:42> Departure <Allie Case - Last Filed: 06/01/16 17:44> - Departure Time of Disposition Order: 19:39 Certified Medical Emergency: Emergent <Breanna Garcia - Last Filed: 06/01/16 19:42> - Departure DIAGNOSIS: Back pain Qualifiers: Back pain location: back pain in unspecified location Chronicity: unspecified Back pain laterality: right Qualified Code(s): M54.9 - Dorsalgia, unspecified Disposition: HOME 01 Condition: Good Additional Instructions: Must follow up with your PCP for further management and evaluation. ED Follow Up Instructions: You have been treated by a care provider in the Emergency Department. These instructions are being provided to you so you can have an understanding of how to care for yourself upon discharge. Upon discharge from the Emergency Department, you are responsible for making arrangements for follow-up care by a physician of your choice. Take all prescribed medications as directed. Return to the Emergency Department immediately for any new or worsening symptoms. You may call the Physician Referral phone number at [phone] to obtain a list of Physicians who are taking new patients. Prescriptions: Hydrocodone/APAP 7.5 mg/325 mg [[place]-7.5] 1 each PO Q6H PRN PRN #7 tablet PRN Reason: Pain Promethazine [Phenergan] 25 mg PO Q6H PRN PRN #20 tablet PRN Reason: Nausea Referrals: David Rojas [Primary Care Provider] - Attestation - Scribe Verification/Attestation Scribe:: Allie Case Acting as Scribe for:: Breanna Garcia Scribe documention review:: This chart was documented by a scribe and accurately reflects the service the provider performed and the decisions made by the provider. <Allie Case - Last Filed: 06/01/16 17:44> - Physician/ TIFFANIE Attestation Patient care was provided by Advanced Practice Provider:: Yes Advanced Practice Provider:: Breanna Garcia Advanced Practice Provider documentation review:: The Mid-level provider documentation, treatment plan and medical decision making was reviewed by the physician who agrees with all treatment and medical decision making by the MLP. <Breanna Garcia - Last Filed: 06/01/16 19:42> Physician Attestation
[2016-06-01] MEDS ORDERED: DILAUDID IM ONE (18:18)
[2016-06-01] MEDS ORDERED: PHENERGAN IM ONE (18:18)
[2016-06-01 19:09] LABS: MANUAL DIFF NEEDED? NO
[2016-06-01 19:23] LABS: BASO% 0.5 % (0.0-0.8); EOS# 0.24 X1000 (0.0-0.7); EOS% 2.1 % (0.0-10.0); HEMATOCRIT 40.1 % (42.0-52.0); HEMOGLOBIN 13.8 g/dL (14.0-18.0); IMM GRAN# 0.11 X1000 (0.0-0.04); LYMPH# 2.74 X1000 (1.2-3.4); MCH 29.6 PG (27-31); MCHC 34.4 g/dL (33-37); MCV 86.1 FL (81-99); MONO# 0.61 X1000 (0.11-0.59); MONO% 5.4 % (1.7-9.3); MPV 11.1 FL (7.4-10.4); PLT 241 X1000 (130-400); RBC 4.66 XMIL (4.7-6.1)
[2016-06-01 19:37] LABS: AGAP 14; ALBUMIN 3.9 g/dL (3.5-5.0); ALKALINE PHOSPHATASE 93 U/L (32-122); BUN 9 mg/dL (8-22); CALCIUM 9.7 mg/dL (8.8-10.2); CHLORIDE 98 mmol/L (98-107); COSMO 278; GOT 20 U/L (10-34); GPT 26 U/L (10-44); POTASSIUM 3.8 mmol/L (3.5-5.1); SODIUM 137 mmol/L (136-145); TCO2 26 mmol/L (25-35); TOTAL PROTEIN 7.3 g/dL (6.3-8.3)
[2016-06-01 21:52] VITALS: BP 139/82
--- NOTE | 2016-06-02 10:08 | Diag Imaging Result Document ---
PROCEDURE NAME: CHEST-2 VIEWS - 06/01/2016 CHEST, TWO VIEWS: COMPARISON: 05/29/2016. INDICATION: Cough. FINDINGS: The cardiomediastinal silhouette is within normal limits. The pulmonary vasculature is not congested. No infiltrates, effusion, or pneumothorax is identified. IMPRESSION: No acute cardiopulmonary abnormality.
== END 2016-06-01 21:51 | disposition home or self-care (01) ==
LOC: P.ED 17:25
DX: M54.9 Dorsalgia, unspecified (principal); R10.84 Generalized abdominal pain; R68.83 Chills (without fever); M79.1 Myalgia; M62.830 Muscle spasm of back; R20.0 Anesthesia of skin; I10 Essential (primary) hypertension; J44.9 Chronic obstructive pulmonary disease, unspecified; E11.9 Type 2 diabetes mellitus without complications; F17.210 Nicotine dependence, cigarettes, uncomplicated; Z71.6 Tobacco abuse counseling; E66.9 Obesity, unspecified; Z79.899 Other long term (current) drug therapy; Z79.4 Long term (current) use of insulin
CPT/HCPCS: 71020; 80053; 85025; 99283; J1170; J2550